=== PATIENT | male | born 1955 | race Caucasian/White ===

== ENCOUNTER 2024-04-07 16:01 | Emergency (ER) | payer OTHER, MEDICARE ==
[2024-04-07 16:21] VITALS: RESP 18; TEMP 98.1; BMI 29.2
[2024-04-07 18:46] LABS: VENOUS BASE EXCESS 0.1 mmol/L (-2-2); VENOUS O2 SATURATION 33.6 % (70-80); VENOUS PH 7.369 (7.310-7.410)
[2024-04-07 19:44] VITALS: BP 149/81; PULSE 65
== END 2024-04-07 19:55 | disposition home or self-care (01) ==
LOC: JER 16:01
DX: T59.811A Toxic effect of smoke, accidental (unintentional), initial encounter (principal); R05.9 Cough, unspecified; R06.02 Shortness of breath; R07.89 Other chest pain
CPT/HCPCS: 36415; 71046-TC-FY; 82375; 82803; 83605; 84484; 93005; 93010; 99285-25